=== PATIENT | male | born 1965 | race Caucasian/White ===

== ENCOUNTER 2019-08-04 19:15 | Emergency (ER) | payer BC, OTHER ==
[~2019-08-04] VITALS: Ht 177.8 cm; Wt 225.0 kg
[2019-08-04] MEDS ORDERED: ketorolac tromethamine 15mg/ml inj. IV ONE (20:10)
[2019-08-04] MEDS ORDERED: morphine 4 MG/ML inj SYRINge IV ONE (20:10)
[2019-08-04] MEDS ORDERED: normal saline 1000ml 1,000 ML IV ONE (20:10)
[2019-08-04] MEDS ORDERED: ondansetron/PF 4mg/2ml inj IV ONE (20:10)
[2019-08-04 20:19] LABS: CLARITY,URINE CLEAR (Clear); COLOR,URINE YELLOW (Yellow); GLUCOSE, URINE 500 mg/dl (Neg); KETONES,URINE TRACE mg/dl (Neg); LEUKOCYTE ESTERASE ,URINE NEGATIVE (Neg); NITRITES, URINE NEGATIVE (Neg); OCCULT BLOOD,URINE NEGATIVE (Neg); PH,URINE 5.5 (4.8-8.0); PROTEIN,URINE NEGATIVE (Neg); UROBILINOGEN,URINE 0.2 E.U/dL (0.2-1.0)
[2019-08-04 20:23] LABS: UA COLLECTION TYPE CLN CATCH MIDSTREAM
[2019-08-04 20:48] LABS: BASOPHILS # (AUTO) 0.1 X10'3 (0-0.2); BASOPHILS % (AUTO) 0.5 % (0-1); EOSINOPHILS # (AUTO) 0.2 X10'3 (0-0.9); EOSINOPHILS % (AUTO) 1.4 % (0-6); HEMATOCRIT 46.2 % (42.0-52.0); HEMOGLOBIN 16.1 g/dl (14.0-17.9); LYMPHOCYTES # (AUTO) 2.1 X10'3 (1.1-4.8); LYMPHOCYTES % (AUTO) 19.3 % (21-51); MEAN CORPUSCULAR HEMOGLOBIN 31.8 PG (27.0-31.0); MEAN CORPUSCULAR HGB CONC 34.9 g/dL (33.0-36.5); MEAN CORPUSCULAR VOLUME 91.2 FL (78-98); MONOCYTES # (AUTO) 0.7 X10'3 (0-0.9); MONOCYTES % (AUTO) 6.6 % (2-12); NEUTROPHILS # (AUTO) 7.9 X10'3 (1.8-7.7); NEUTROPHILS % (AUTO) 72.2 % (42-75); PLATELET COUNT 223 X10'3 (140-440); RED BLOOD COUNT 5.07 X10'6 (4.70-6.10); RED CELL DISTRIBUTION WIDTH 13.8 % (11.5-14.5); WHITE BLOOD COUNT 10.9 X10'3 (4.5-11.0)
[2019-08-04 21:08] LABS: ALBUMIN 4.1 G/DL (3.4-5.0); ALKALINE PHOSPHATASE 107 IU/L (46-116); CALCIUM 8.4 MG/DL (8.5-10.1); CREATININE 1.51 MG/DL (0.60-1.10); TOTAL CARBON DIOXIDE 26.4 MMOL/L (24-32); eGFR 48 ML/MIN
[2019-08-04] MEDS ORDERED: ONDA4TAB6 PO (21:28)
[2019-08-04] MEDS ORDERED: HYDR-4353 PO (21:28)
[2019-08-04] MEDS ORDERED: FLO0.4C PO (21:28)
[2019-08-04 21:36] LABS: ALANINE AMINOTRANSFERASE 84 U/L (12-78); ALBUMIN/GLOBULIN RATIO 1.1 (1.1-1.5); ANION GAP 12 (8-16); BILIRUBIN,TOTAL 0.7 MG/DL (0.1-1.0); BLOOD UREA NITROGEN 18 MG/DL (7-18); BUN/CREATININE RATIO 11.9 (5.4-32.0); CHLORIDE 100 MMOL/L (99-107); SODIUM 138 MMOL/L (135-145); TOTAL PROTEIN 7.9 G/DL (6.4-8.2)
[2019-08-04 21:37] LABS: POTASSIUM 4.4 MMOL/L (3.5-5.1)
[2019-08-04 21:59] LABS: LIPASE 3261 U/L (73-393)
[2019-08-04 22:02] LABS: ASPARTATE AMINO TRANSFERASE 63 U/L (10-37)
[2019-08-04 22:03] LABS: GLUCOSE 232 MG/DL (70-104)
[2019-08-04 22:27] VITALS: BP 151/97
== END 2019-08-04 22:29 | disposition home or self-care (01) ==
LOC: EEVIPCON 19:16 → ER 19:16
DX: N20.0 Calculus of kidney (principal); K29.80 Duodenitis without bleeding; K85.90 Acute pancreatitis without necrosis or infection, unspecified; Z79.899 Other long term (current) drug therapy
CPT/HCPCS: 36415; 74176; 80053; 81003; 83690; 85025; 96374; 96375; 99284; J1885; J2270; J2405; J7030

== ENCOUNTER 2019-08-09 16:32 | Emergency (ER) | payer OTHER ==
[~2019-08-09] VITALS: Ht 177.8 cm; Wt 98.4 kg
[~2019-08-09 16:32] MED LIST: FLO0.4C PO; HYDR-4353 PO; ONDA4TAB6 PO
[2019-08-09] MEDS ORDERED: normal saline 1000ML IV soln IV ONE (17:10)
[2019-08-09 17:38] LABS: BASOPHILS % (AUTO) 0.6 % (0-1); EOSINOPHILS # (AUTO) 0.2 X10'3 (0-0.9); EOSINOPHILS % (AUTO) 2.5 % (0-6); HEMATOCRIT 42.9 % (42.0-52.0); HEMOGLOBIN 14.3 g/dl (14.0-17.9); LYMPHOCYTES # (AUTO) 1.5 X10'3 (1.1-4.8); LYMPHOCYTES % (AUTO) 22.4 % (21-51); MEAN CORPUSCULAR HEMOGLOBIN 30.4 PG (27.0-31.0); MEAN CORPUSCULAR HGB CONC 33.3 g/dL (33.0-36.5); MEAN CORPUSCULAR VOLUME 91.3 FL (78-98); MEAN PLATELET VOLUME 8.5 FL (7.4-10.4); MONOCYTES # (AUTO) 0.5 X10'3 (0-0.9); MONOCYTES % (AUTO) 7.2 % (2-12); NEUTROPHILS # (AUTO) 4.5 X10'3 (1.8-7.7); NEUTROPHILS % (AUTO) 67.3 % (42-75); PLATELET COUNT 234 X10'3 (140-440); RED CELL DISTRIBUTION WIDTH 13.8 % (11.5-14.5); WHITE BLOOD COUNT 6.7 X10'3 (4.5-11.0)
[2019-08-09 17:53] LABS: PARTIAL THROMBOPLASTIN TIME 27 SECONDS (22-32)
[2019-08-09 17:55] LABS: ALANINE AMINOTRANSFERASE 68 U/L (12-78); ALBUMIN 3.9 G/DL (3.4-5.0); ALBUMIN/GLOBULIN RATIO 0.9 (1.1-1.5); ALKALINE PHOSPHATASE 135 IU/L (46-116); ANION GAP 11 (8-16); ASPARTATE AMINO TRANSFERASE 57 U/L (10-37); BILIRUBIN,TOTAL 0.9 MG/DL (0.1-1.0); BLOOD UREA NITROGEN 14 MG/DL (7-18); BUN/CREATININE RATIO 10.7 (5.4-32.0); CALCIUM 9.3 MG/DL (8.5-10.1); CHLORIDE 105 MMOL/L (99-107); CREATININE 1.31 MG/DL (0.60-1.10); GLUCOSE 150 MG/DL (70-104); LIPASE 144 U/L (73-393); MAGNESIUM 2.1 MG/DL (1.5-2.4); POTASSIUM 4.4 MMOL/L (3.5-5.1); SODIUM 142 MMOL/L (135-145); TOTAL CARBON DIOXIDE 25.6 MMOL/L (24-32); TOTAL PROTEIN 8.3 G/DL (6.4-8.2); eGFR 57 ML/MIN
--- NOTE | 2019-08-09 18:30 | NUR ---
U/S CALLED BACK AT 18:[address] IN
--- NOTE | 2019-08-09 18:54 | NUR ---
PT AMBULATED TO BATHROOM WITH NO DIFFICULTY, URINE SAMPLE OBTAINED. PT UPDATE ON PLAN OF CARE, AGREEABLE TO PLAN
[2019-08-09 19:41] VITALS: BP 124/59
[2019-08-09 19:58] LABS: CLARITY,URINE CLEAR (Clear); COLOR,URINE YELLOW (Yellow); GLUCOSE, URINE NEGATIVE (Neg); KETONES,URINE NEGATIVE (Neg); LEUKOCYTE ESTERASE ,URINE NEGATIVE (Neg); NITRITES, URINE NEGATIVE (Neg); OCCULT BLOOD,URINE NEGATIVE (Neg); PROTEIN,URINE NEGATIVE (Neg); UA COLLECTION TYPE CLN CATCH MIDSTREAM
== END 2019-08-09 19:39 | disposition home or self-care (01) ==
LOC: ER 16:34 → EEVIPCON 16:34 → ER 19:39
DX: R10.12 Left upper quadrant pain (principal); R10.32 Left lower quadrant pain; Z87.442 Personal history of urinary calculi; Z79.899 Other long term (current) drug therapy
CPT/HCPCS: 36415; 76700; 80053; 81003; 83605; 83690; 83735; 84145; 85025; 85610; 85730; 87040; 99284; J7030

== ENCOUNTER 2019-08-13 15:02 | Emergency (ER) | payer BC, OTHER ==
[~2019-08-13] VITALS: Ht 177.8 cm; Wt 97.0 kg
[~2019-08-13 15:02] MED LIST changes: -HYDR-4353 PO
[2019-08-13 15:05] VITALS: BP 186/106
[2019-08-13] MEDS ORDERED: FLO0.4C PO (16:05)
== END 2019-08-13 16:24 | disposition home or self-care (01) ==
LOC: EEVIPCON 15:03 → ER 15:03
DX: R14.0 Abdominal distension (gaseous) (principal); Z79.899 Other long term (current) drug therapy
CPT/HCPCS: 99281

== ENCOUNTER 2019-08-19 11:08 | Emergency (ER) | payer BC ==
[~2019-08-19] VITALS: Ht 180.3 cm; Wt 98.2 kg
[2019-08-19] MEDS ORDERED: metFORMIN 500mg tablet PO ONE (12:00)
[2019-08-19 12:31] VITALS: BP 125/88
== END 2019-08-19 12:31 | disposition home or self-care (01) ==
LOC: EEVIPCON 11:09 → ER 11:09
DX: E11.65 Type 2 diabetes mellitus with hyperglycemia (principal); K21.9 Gastro-esophageal reflux disease without esophagitis; Z79.899 Other long term (current) drug therapy
CPT/HCPCS: 82948; 99283

== ENCOUNTER 2019-08-21 09:27 | Outpatient (CLI) | payer BC ==
[2019-08-21 10:43] LABS: CLARITY,URINE CLEAR (Clear); COLOR,URINE YELLOW (Yellow); GLUCOSE, URINE NEGATIVE (Neg); KETONES,URINE TRACE mg/dl (Neg); LEUKOCYTE ESTERASE ,URINE NEGATIVE (Neg); NITRITES, URINE NEGATIVE (Neg); OCCULT BLOOD,URINE NEGATIVE (Neg); PH,URINE 5.5 (4.8-8.0); PROTEIN,URINE NEGATIVE (Neg); UROBILINOGEN,URINE 0.2 E.U/dL (0.2-1.0)
[2019-08-21 10:45] LABS: BASOPHILS % (AUTO) 0.5 % (0-1); EOSINOPHILS # (AUTO) 0.1 X10'3 (0-0.9); EOSINOPHILS % (AUTO) 2.1 % (0-6); HEMATOCRIT 43.3 % (42.0-52.0); HEMOGLOBIN 14.4 g/dl (14.0-17.9); LYMPHOCYTES # (AUTO) 1.5 X10'3 (1.1-4.8); LYMPHOCYTES % (AUTO) 25.1 % (21-51); MEAN CORPUSCULAR HEMOGLOBIN 29.7 PG (27.0-31.0); MEAN CORPUSCULAR HGB CONC 33.2 g/dL (33.0-36.5); MEAN CORPUSCULAR VOLUME 89.4 FL (78-98); MEAN PLATELET VOLUME 8.8 FL (7.4-10.4); MONOCYTES # (AUTO) 0.3 X10'3 (0-0.9); MONOCYTES % (AUTO) 5.2 % (2-12); NEUTROPHILS % (AUTO) 67.1 % (42-75); PLATELET COUNT 251 X10'3 (140-440); RED BLOOD COUNT 4.84 X10'6 (4.70-6.10); RED CELL DISTRIBUTION WIDTH 13.7 % (11.5-14.5)
[2019-08-21 10:47] LABS: UA COLLECTION TYPE VOIDED
[2019-08-21 11:06] LABS: ALANINE AMINOTRANSFERASE 53 U/L (12-78); ALBUMIN/GLOBULIN RATIO 1.1 (1.1-1.5); ALKALINE PHOSPHATASE 95 IU/L (46-116); ANION GAP 11 (8-16); ASPARTATE AMINO TRANSFERASE 31 U/L (10-37); BILIRUBIN,TOTAL 0.8 MG/DL (0.1-1.0); BLOOD UREA NITROGEN 19 MG/DL (7-18); BUN/CREATININE RATIO 14.2 (5.4-32.0); CALCIUM 9.3 MG/DL (8.5-10.1); CHLORIDE 106 MMOL/L (99-107); CHOL/HDL RATIO 8.7 (0.00-4.99); CHOLESTEROL 277 MG/DL (0-200); CREATININE 1.34 MG/DL (0.60-1.10); GLUCOSE 138 MG/DL (70-104); HDL CHOLESTEROL 32 MG/DL (35-60); LDL CHOLESTEROL 167 MG/DL (50-100); POTASSIUM 4.2 MMOL/L (3.5-5.1); SODIUM 142 MMOL/L (135-145); TOTAL CARBON DIOXIDE 24.9 MMOL/L (24-32); TOTAL PROTEIN 7.6 G/DL (6.4-8.2); TRIGLYCERIDES 334 MG/DL (20-135); eGFR 55 ML/MIN
== END 2019-08-21 23:59 | disposition home or self-care (01) ==
LOC: LAB 09:27
PROVIDERS: ATTEND Family Medicine
DX: I10 Essential (primary) hypertension (principal); E78.5 Hyperlipidemia, unspecified; J44.9 Chronic obstructive pulmonary disease, unspecified; K21.9 Gastro-esophageal reflux disease without esophagitis; K85.90 Acute pancreatitis without necrosis or infection, unspecified; N20.0 Calculus of kidney; E11.65 Type 2 diabetes mellitus with hyperglycemia; E11.49 Type 2 diabetes mellitus with other diabetic neurological complication; F32.9 Major depressive disorder, single episode, unspecified; J45.909 Unspecified asthma, uncomplicated; Z76.89 Persons encountering health services in other specified circumstances
CPT/HCPCS: 36415; 80053; 80061; 81003; 84439; 84443; 84550; 85025

== ENCOUNTER 2019-08-29 09:35 | Outpatient (CLI) | payer BC ==
[2019-08-29 10:41] LABS: ALBUMIN 4.6 G/DL (3.4-5.0); ANION GAP 12 (8-16); BLOOD UREA NITROGEN 25 MG/DL (7-18); BUN/CREATININE RATIO 15.4 (5.4-32.0); CALCIUM 9.8 MG/DL (8.5-10.1); CHLORIDE 104 MMOL/L (99-107); CREATININE 1.62 MG/DL (0.60-1.10); GLUCOSE 133 MG/DL (70-104); POTASSIUM 4.5 MMOL/L (3.5-5.1); SODIUM 139 MMOL/L (135-145); TOTAL CARBON DIOXIDE 23.2 MMOL/L (24-32); eGFR 44 ML/MIN
== END 2019-08-29 23:59 | disposition home or self-care (01) ==
LOC: LAB 09:35
PROVIDERS: ATTEND Family Medicine
DX: E11.65 Type 2 diabetes mellitus with hyperglycemia (principal); J30.2 Other seasonal allergic rhinitis; F32.9 Major depressive disorder, single episode, unspecified; Z12.11 Encounter for screening for malignant neoplasm of colon; Z23 Encounter for immunization
CPT/HCPCS: 36415; 80048

== ENCOUNTER 2019-09-12 08:51 | Outpatient (CLI) | payer BC ==
[2019-09-12 09:33] LABS: ALBUMIN 4.3 G/DL (3.4-5.0); ANION GAP 9 (8-16); BLOOD UREA NITROGEN 19 MG/DL (7-18); BUN/CREATININE RATIO 13.3 (5.4-32.0); CALCIUM 9.2 MG/DL (8.5-10.1); CHLORIDE 105 MMOL/L (99-107); CREATININE 1.43 MG/DL (0.60-1.10); GLUCOSE 125 MG/DL (70-104); POTASSIUM 4.1 MMOL/L (3.5-5.1); SODIUM 140 MMOL/L (135-145); TOTAL CARBON DIOXIDE 25.9 MMOL/L (24-32); eGFR 51 ML/MIN
== END 2019-09-12 23:59 | disposition home or self-care (01) ==
LOC: LAB 08:51
PROVIDERS: ATTEND Family Medicine
DX: E11.65 Type 2 diabetes mellitus with hyperglycemia (principal); I10 Essential (primary) hypertension; R53.83 Other fatigue; F32.9 Major depressive disorder, single episode, unspecified
CPT/HCPCS: 36415; 80048

== ENCOUNTER 2019-11-12 11:09 | Outpatient (CLI) | payer BC ==
[~2019-11-12 11:09] MED LIST changes: -FLO0.4C PO
== END 2019-11-12 23:59 | disposition home or self-care (01) ==
LOC: LAB 11:09
PROVIDERS: ATTEND Family Medicine
DX: E11.65 Type 2 diabetes mellitus with hyperglycemia (principal)
CPT/HCPCS: 36415; 82043; 82570; 83036

== ENCOUNTER 2019-12-28 14:51 | Emergency (ER) | payer BC ==
[~2019-12-28] VITALS: Ht 177.8 cm; Wt 93.2 kg
--- NOTE | 2019-12-28 15:26 | NUR ---
CONSUELO De La Rosa with pt.
[2019-12-28 16:49] VITALS: BP 140/97
== END 2019-12-28 16:00 | disposition home or self-care (01) ==
LOC: ER 14:51
DX: B34.9 Viral infection, unspecified (principal); R05 Cough; R51.9 Headache, unspecified; R19.7 Diarrhea, unspecified; Z20.828 Contact with and (suspected) exposure to other viral communicable diseases; K21.9 Gastro-esophageal reflux disease without esophagitis; E11.9 Type 2 diabetes mellitus without complications; Z87.440 Personal history of urinary (tract) infections; Z79.899 Other long term (current) drug therapy
CPT/HCPCS: 36415; 99281

== ENCOUNTER 2020-01-22 11:41 | Outpatient (CLI) | payer BC ==
[2020-01-22 16:05] LABS: HIV ANTIBODY 1&2 RAPID NON-REACTIVE (Neg)
[2020-01-23 12:28] LABS: HBSAG SCREEN Negative (Negative); HEP A AB, IGM Negative (Negative); HEPATITIS C ANTIBODY <0.1 s/co ratio (0.0-0.9)
== END 2020-01-22 23:59 | disposition home or self-care (01) ==
LOC: LAB 11:41
PROVIDERS: ATTEND Family Medicine
DX: Z20.2 Contact with and (suspected) exposure to infections with a predominantly sexual mode of transmission (principal)
CPT/HCPCS: 36415; 80074; 86592; 86695; 86696; 86703; 87491

== ENCOUNTER 2020-02-20 09:23 | Outpatient (CLI) | payer BC ==
[2020-02-20 10:09] LABS: HEMOGLOBIN A1C 6.7 % (4.5-6.2)
[2020-02-20 10:13] LABS: ALANINE AMINOTRANSFERASE 53 U/L (12-78); ALBUMIN 4.5 G/DL (3.4-5.0); ALBUMIN/GLOBULIN RATIO 1.3 (1.1-1.5); ALKALINE PHOSPHATASE 80 IU/L (46-116); ANION GAP 8 (8-16); ASPARTATE AMINO TRANSFERASE 25 U/L (10-37); BILIRUBIN,TOTAL 0.7 MG/DL (0.1-1.0); BLOOD UREA NITROGEN 22 MG/DL (7-18); BUN/CREATININE RATIO 16.5 (5.4-32.0); CALCIUM 9.7 MG/DL (8.5-10.1); CHLORIDE 107 MMOL/L (99-107); CREATININE 1.33 MG/DL (0.60-1.10); GLUCOSE 166 MG/DL (70-104); POTASSIUM 4.7 MMOL/L (3.5-5.1); SODIUM 144 MMOL/L (135-145); TOTAL CARBON DIOXIDE 29.1 MMOL/L (24-32); TOTAL PROTEIN 8.1 G/DL (6.4-8.2); eGFR 56 ML/MIN
== END 2020-02-20 23:59 | disposition home or self-care (01) ==
LOC: LAB 09:23
PROVIDERS: ATTEND Family Medicine
DX: E11.69 Type 2 diabetes mellitus with other specified complication (principal)
CPT/HCPCS: 36415; 80053; 83036

== ENCOUNTER 2020-02-23 15:41 | Emergency (ER) | payer BC ==
[~2020-02-23] VITALS: Ht 179.1 cm; Wt 96.4 kg
[2020-02-23 15:54] VITALS: BP 135/95
== END 2020-02-23 16:43 | disposition home or self-care (01) ==
LOC: ER 15:42
DX: M25.512 Pain in left shoulder (principal); K21.9 Gastro-esophageal reflux disease without esophagitis; E11.9 Type 2 diabetes mellitus without complications; Z87.442 Personal history of urinary calculi; Z79.899 Other long term (current) drug therapy
CPT/HCPCS: 73030; 99283

== ENCOUNTER 2020-03-12 12:58 | Outpatient (CLI) | payer BC | END 2020-03-12 23:59 | disposition home or self-care (01) | LOC: RAD 12:58 | PROVIDERS: ATTEND Family Medicine | DX: M25.562 Pain in left knee (principal); M25.552 Pain in left hip; M25.572 Pain in left ankle and joints of left foot | CPT/HCPCS: 73502; 73564; 73610 ==

== ENCOUNTER 2020-05-12 12:26 | Emergency (ER) | payer OTHER ==
[~2020-05-12] VITALS: Ht 177.8 cm; Wt 100.0 kg
[2020-05-12 12:35] VITALS: BP 135/91
== END 2020-05-12 13:22 | disposition home or self-care (01) ==
LOC: ER 12:26
DX: S60.511A Abrasion of right hand, initial encounter (principal); Z77.21 Contact with and (suspected) exposure to potentially hazardous body fluids; K21.9 Gastro-esophageal reflux disease without esophagitis; E11.9 Type 2 diabetes mellitus without complications; Z87.442 Personal history of urinary calculi; Z79.899 Other long term (current) drug therapy; X58.XXXA Exposure to other specified factors, initial encounter; Y93.9 Activity, unspecified; Y92.89 Other specified places as the place of occurrence of the external cause; Y99.8 Other external cause status
CPT/HCPCS: 99282

== ENCOUNTER 2020-05-21 12:02 | Outpatient (CLI) | payer BC ==
[2020-05-21 12:58] LABS: ALBUMIN 4.5 G/DL (3.4-5.0); ANION GAP 11 (8-16); BLOOD UREA NITROGEN 18 MG/DL (7-18); CALCIUM 9.9 MG/DL (8.5-10.1); CHLORIDE 104 MMOL/L (99-107); CREATININE 1.29 MG/DL (0.60-1.10); GLUCOSE 146 MG/DL (70-104); HEMOGLOBIN A1C 7.6 % (4.5-6.2); POTASSIUM 4.9 MMOL/L (3.5-5.1); SODIUM 141 MMOL/L (135-145); eGFR 58 ML/MIN
== END 2020-05-21 23:59 | disposition home or self-care (01) ==
LOC: LAB 12:02
PROVIDERS: ATTEND Family Medicine
DX: E11.69 Type 2 diabetes mellitus with other specified complication (principal); R79.89 Other specified abnormal findings of blood chemistry
CPT/HCPCS: 36415; 80048; 83036

== ENCOUNTER 2020-05-25 14:16 | Emergency (ER) | payer BC ==
[~2020-05-25] VITALS: Ht 177.8 cm; Wt 96.4 kg
[2020-05-25] MEDS ORDERED: ketorolac trometh inj. 60 MG/2 ML VIAL IM ONE (15:05)
[2020-05-25] MEDS ORDERED: GABA300C PO (15:07)
[2020-05-25 15:17] VITALS: BP 126/92
== END 2020-05-25 15:17 | disposition home or self-care (01) ==
LOC: ER 14:16
DX: G89.29 Other chronic pain (principal); M25.512 Pain in left shoulder; K21.9 Gastro-esophageal reflux disease without esophagitis; E11.42 Type 2 diabetes mellitus with diabetic polyneuropathy; Z87.442 Personal history of urinary calculi; Z79.899 Other long term (current) drug therapy
CPT/HCPCS: 96372; 99283; J1885

== ENCOUNTER 2020-08-09 19:57 | Emergency (ER) | payer BC ==
[~2020-08-09] VITALS: Ht 177.8 cm; Wt 100.0 kg
[~2020-08-09 19:57] MED LIST changes: +GABA300C PO
--- NOTE | 2020-08-09 20:27 | NUR ---
PATIENT IS HERE FOR 4 ISSUES: 1. PATIENT REQUESTING PRESCRIPTION REFILL FOR GABAPENTIN 300 MG TID. 2. MEDICATION FOR PAIN. PATIENT IS TAKING NAPROXEN EVERY 12 HOURS AND 2 TYLENOL UNKNOWN DOSE WITH NAPROXEN WITHOUT ADEQUATE PAIN RELIEF OF LEFT SHOULDER IMPINGEMENT DX BY DR FENTON. RATES PAIN NOW A 4/10. PAIN IS IN SHOULDER AND ARMPIT TO LEFT ELBOW LIKE A "STINGING LIGTHNING BOLT". QUENTIN ALSO HAS BURSITIS DX IN HIS LEFT SHOULDER. PAIN CAN ESCALATE TO 10/10. PATIENT IS TO START PHYSICAL THERAPY PER DR FENTON. PATIENT WOULD LIKE TO TRY TO HAVE BETTER PAIN CONTROL WITH OTHER MEDICATION FOR PAIN. SUGGSETED TAKING TYLENOL MORE FREQUENT THAN EVERY 12 HOURS ROUTINELY. 3. PATIENT REPORTS LEFT THIGH "VIBRATION" WHICH INCREASED WHEN TRAVELING IN [place] AND WAS IN BOTH LEGS: MONTHS AGO AND NOW VIBRATION IN LEFT THIGH HAS RETURNED "ODDLY" 4. NOT FEELING WELL: TIRED AND SLEEPY , "CLOSE TO" NAUSEA: UPSET STOMACH ALL WEEK: ABLE TO EAT AND DRINK "LIGHTLY" AND NOW EATING "NORMALLY" IN SMALLER PORTIONS
--- NOTE | 2020-08-09 20:39 | NUR ---
QUENTIN REPORTS HIS BLOOD SUGAR WAS 165 AT ABOUT 0700 TODAY PRIOR TO EATING
[2020-08-09] MEDS ORDERED: GABA-534 PO (21:34)
[2020-08-09] MEDS ORDERED: TRAM50TA2 PO (21:35)
[2020-08-09 21:53] VITALS: BP 144/94
== END 2020-08-09 21:55 | disposition home or self-care (01) ==
LOC: ER 19:58 → EEVIPCON 19:58 → ER 21:55
DX: E11.40 Type 2 diabetes mellitus with diabetic neuropathy, unspecified (principal); M25.512 Pain in left shoulder; Z76.0 Encounter for issue of repeat prescription; K21.9 Gastro-esophageal reflux disease without esophagitis; Z87.442 Personal history of urinary calculi; Z79.899 Other long term (current) drug therapy
CPT/HCPCS: 99281

== ENCOUNTER 2020-08-11 11:53 | Outpatient (CLI) | payer BC ==
[~2020-08-11 11:53] MED LIST changes: +GABA-534 PO; +TRAM50TA2 PO
[2020-08-11 13:41] LABS: BASOPHILS % (AUTO) 0.5 % (0-1); EOSINOPHILS # (AUTO) 0.2 X10'3 (0-0.9); HEMATOCRIT 41.9 % (42.0-52.0); HEMOGLOBIN 14.2 g/dl (14.0-17.9); LYMPHOCYTES # (AUTO) 1.7 X10'3 (1.1-4.8); MEAN CORPUSCULAR HEMOGLOBIN 31.2 PG (27.0-31.0); MEAN CORPUSCULAR HGB CONC 33.8 g/dL (33.0-36.5); MEAN CORPUSCULAR VOLUME 92.3 FL (78-98); MONOCYTES # (AUTO) 0.4 X10'3 (0-0.9); MONOCYTES % (AUTO) 5.8 % (2-12); NEUTROPHILS % (AUTO) 67.7 % (42-75); PLATELET COUNT 215 X10'3 (140-440); RED BLOOD COUNT 4.54 X10'6 (4.70-6.10); RED CELL DISTRIBUTION WIDTH 14.1 % (11.5-14.5); WHITE BLOOD COUNT 7.3 X10'3 (4.5-11.0)
[2020-08-12 11:05] LABS: OCCULT BLOOD STOOL NEGATIVE (Neg)
== END 2020-08-11 23:59 | disposition home or self-care (01) ==
LOC: RAD 11:53
DX: R10.9 Unspecified abdominal pain (principal); R53.83 Other fatigue; I10 Essential (primary) hypertension
CPT/HCPCS: 36415; 82272; 85025

== ENCOUNTER 2020-08-13 11:40 | Outpatient (CLI) | payer BC | END 2020-08-13 23:59 | disposition home or self-care (01) | LOC: 64 CT 11:40 | PROVIDERS: ATTEND Family Medicine | DX: N20.2 Calculus of kidney with calculus of ureter (principal); K42.9 Umbilical hernia without obstruction or gangrene; N28.1 Cyst of kidney, acquired; M47.819 Spondylosis without myelopathy or radiculopathy, site unspecified; J98.11 Atelectasis; I31.3 Pericardial effusion (noninflammatory) | CPT/HCPCS: 74150 ==

== ENCOUNTER 2020-08-18 10:03 | Outpatient (CLI) | payer BC | END 2020-08-18 23:59 | disposition home or self-care (01) | LOC: LAB 10:03 | PROVIDERS: ATTEND Family Medicine | DX: E11.65 Type 2 diabetes mellitus with hyperglycemia (principal) | CPT/HCPCS: 36415; 83036 ==

== ENCOUNTER 2020-09-12 12:25 | Emergency (ER) | payer OTHER ==
[~2020-09-12] VITALS: Ht 179.1 cm; Wt 102.3 kg
[~2020-09-12 12:25] MED LIST changes: -TRAM50TA2 PO
[2020-09-12 13:07] VITALS: BP 143/93
--- NOTE | 2020-09-12 13:17 | NUR ---
Seen, assessed and discharged by provider bj CORDERO.
== END 2020-09-12 13:19 | disposition home or self-care (01) ==
LOC: ER 12:25
DX: M25.512 Pain in left shoulder (principal); K21.9 Gastro-esophageal reflux disease without esophagitis; E11.9 Type 2 diabetes mellitus without complications; Z87.442 Personal history of urinary calculi; Z79.899 Other long term (current) drug therapy
CPT/HCPCS: 99281

== ENCOUNTER 2020-09-19 00:57 | Inpatient (IN) | payer BC, OTHER ==
[~2020-09-19] VITALS: Ht 177.8 cm; Wt 100.5 kg
--- NOTE | 2020-09-19 01:45 | NUR ---
Pt c/o 6.5 pain. PT notified.
[2020-09-19] MEDS ORDERED: ketorolac tromethamine 15mg/ml inj. IV ONE (02:00)
[2020-09-19] MEDS ORDERED: tamsulosin 0.4mg capsule PO ONE (02:00)
[2020-09-19] MEDS ORDERED: tamsulosin 0.4mg capsule PO SCH (02:00)
[2020-09-19] MEDS ORDERED: pantoprazole 40 MG vial IV ONE (02:00)
[2020-09-19] MEDS ORDERED: ondansetron/PF 4mg/2ml inj IV ONE (02:00)
[2020-09-19] MEDS ORDERED: morphine 4 MG/ML inj SYRINge IV ONE ×2 (02:00→07:20)
[2020-09-19 02:05] LABS: CLARITY,URINE CLEAR (Clear); COLOR,URINE YELLOW (Yellow); GLUCOSE, URINE 500 mg/dl (Neg); KETONES,URINE NEGATIVE (Neg); LEUKOCYTE ESTERASE ,URINE NEGATIVE (Neg); NITRITES, URINE NEGATIVE (Neg); OCCULT BLOOD,URINE NEGATIVE (Neg); PROTEIN,URINE NEGATIVE (Neg); UROBILINOGEN,URINE 0.2 E.U/dL (0.2-1.0)
[2020-09-19 02:11] LABS: UA COLLECTION TYPE CLN CATCH MIDSTREAM
[2020-09-19] MEDS ORDERED: simethicone 125mg capsule PO ONE (03:55)
[2020-09-19] MEDS ORDERED: magnesium citrate 296ml oral solution PO ONE (05:30)
[2020-09-19 05:51] LABS: BASOPHILS # (AUTO) 0.1 X10'3 (0-0.2); BASOPHILS % (AUTO) 0.5 % (0-1); EOSINOPHILS # (AUTO) 0.2 X10'3 (0-0.9); EOSINOPHILS % (AUTO) 1.3 % (0-6); HEMATOCRIT 43.8 % (42.0-52.0); HEMOGLOBIN 14.5 g/dl (14.0-17.9); LYMPHOCYTES # (AUTO) 2.4 X10'3 (1.1-4.8); LYMPHOCYTES % (AUTO) 20.1 % (21-51); MEAN CORPUSCULAR HGB CONC 33.2 g/dL (33.0-36.5); MEAN CORPUSCULAR VOLUME 93.4 FL (78-98); MEAN PLATELET VOLUME 9.1 FL (7.4-10.4); MONOCYTES # (AUTO) 0.9 X10'3 (0-0.9); MONOCYTES % (AUTO) 7.2 % (2-12); NEUTROPHILS # (AUTO) 8.6 X10'3 (1.8-7.7); NEUTROPHILS % (AUTO) 70.9 % (42-75); PLATELET COUNT 213 X10'3 (140-440); RED BLOOD COUNT 4.69 X10'6 (4.70-6.10); WHITE BLOOD COUNT 12.1 X10'3 (4.5-11.0)
[2020-09-19 06:06] LABS: ALANINE AMINOTRANSFERASE 44 U/L (12-78); ALBUMIN 4.4 G/DL (3.4-5.0); ALBUMIN/GLOBULIN RATIO 1.4 (1.1-1.5); ALKALINE PHOSPHATASE 80 IU/L (46-116); ANION GAP 8 (8-16); ASPARTATE AMINO TRANSFERASE 19 U/L (10-37); BILIRUBIN,TOTAL 0.7 MG/DL (0.1-1.0); BLOOD UREA NITROGEN 30 MG/DL (7-18); BUN/CREATININE RATIO 19.4 (5.4-32.0); CALCIUM 9.5 MG/DL (8.5-10.1); CHLORIDE 103 MMOL/L (99-107); CREATININE 1.55 MG/DL (0.60-1.10); GLUCOSE 195 MG/DL (70-104); LIPASE 1090 U/L (73-393); POTASSIUM 5.1 MMOL/L (3.5-5.1); SODIUM 138 MMOL/L (135-145); TOTAL CARBON DIOXIDE 27.4 MMOL/L (24-32); TOTAL PROTEIN 7.5 G/DL (6.4-8.2); eGFR 46 ML/MIN
[2020-09-19] MEDS ORDERED: iohexol 300mg/ml 100ml inj. ONE (06:59)
[2020-09-19] MEDS: MESSAGE TO NURSING PO SCH ×2 (07:15→10:00)
[2020-09-19] MEDS ORDERED: magnesium hydroxide 30ml (MOM) UD suspension PO PRN (07:25)
[2020-09-19] MEDS ORDERED: acetaminophen 325mg tablet PO PRN (07:25)
[2020-09-19] MEDS ORDERED: morphine 2 MG/ML inj. syringe IV PRN (07:25)
[2020-09-19] MEDS ORDERED: ondansetron/PF 4mg/2ml inj IV PRN (07:25)
[2020-09-19] MEDS ORDERED: mag hydrox/Alum hydrox/simeth 30ml oral suspension PO PRN (07:25)
--- NOTE | 2020-09-19 09:05 | NUR ---
Pt tx via chrisrlauro from ED. Awake alert & oriented x4, denies pain at this time. Oriented to room & POC. SO at bedside, all questions addressed with verbal understanding. Bed low, call light in reach.
[2020-09-19] MEDS: pantoprazole 40 MG vial IV SCH ×2 (09:44→20:03)
[2020-09-19 09:45] VITALS: BP 115/75
[2020-09-19] MEDS: enoxaparin 40mg/0.4ml syringe SUBCUT SCH (09:46)
[2020-09-19] MEDS: normal saline 1000ml 1,000 ML IV SCH ×3 (09:47→22:39)
[2020-09-19] MEDS ORDERED: NAPR-996 PO (10:17)
[2020-09-19] MEDS ORDERED: ASPI-1475 PO (10:17)
[2020-09-19] MEDS ORDERED: VALS80TA32 PO (10:17)
[2020-09-19] MEDS ORDERED: ATOR-2 PO (10:17)
[2020-09-19] MEDS ORDERED: GABA-534 PO (10:17)
[2020-09-19] MEDS ORDERED: METF-950 PO (10:17)
[2020-09-19] MEDS ORDERED: OMEP-50 PO (10:17)
--- NOTE | 2020-09-19 10:40 | NUR ---
Nutrition consult re: NPO for pancreatitis. Pt just admit today. Noted h/o T2DM, A1c pending at this time. Recommend advancement to low fat CHO controlled diet as medically indicated as pancreatitis improves. Will continue to follow and monitor need for DM education pending A1c results. Addendum: 09/19/20 at [address] Amended: Links added.
[2020-09-19 12:57] LABS: CHOL/HDL RATIO 4.4 (0.00-4.99); CHOLESTEROL 185 MG/DL (0-200); HDL CHOLESTEROL 42 MG/DL (35-60); LDL CHOLESTEROL 103 MG/DL (50-100); TRIGLYCERIDES 212 MG/DL (20-135)
[2020-09-19] MEDS ORDERED: naproxen 500mg tablet PO PRN (13:45)
[2020-09-19] MEDS: morphine 2 MG/ML inj. syringe IV PRN ×2 (15:48→20:04)
[2020-09-19] MEDS: gabapentin 400mg capsule PO SCH (15:52)
[2020-09-19 18:00] VITALS: BP 121/88
--- NOTE | 2020-09-19 18:25 | NUR ---
Problems reprioritized. Patient report given, questions answered & plan of care reviewed with ALONZO Chan.
--- NOTE | 2020-09-19 18:30 | NUR ---
Patient in room TRAN 351. I have received report from CONRADO ROSADO and had the opportunity to ask questions and assume patient care.
[2020-09-20] VITALS: BP 122/79
[2020-09-20] MEDS: gabapentin 400mg capsule PO SCH ×4 (00:18→23:59)
[2020-09-20] MEDS: normal saline 1000ml 1,000 ML IV SCH ×4 (04:48→21:39)
[2020-09-20 05:54] LABS: BASOPHILS # (AUTO) 0.1 X10'3 (0-0.2); BASOPHILS % (AUTO) 0.6 % (0-1); EOSINOPHILS # (AUTO) 0.2 X10'3 (0-0.9); HEMATOCRIT 40.8 % (42.0-52.0); HEMOGLOBIN 13.6 g/dl (14.0-17.9); LYMPHOCYTES # (AUTO) 1.4 X10'3 (1.1-4.8); LYMPHOCYTES % (AUTO) 15.3 % (21-51); MEAN CORPUSCULAR HEMOGLOBIN 31.2 PG (27.0-31.0); MEAN CORPUSCULAR HGB CONC 33.4 g/dL (33.0-36.5); MEAN CORPUSCULAR VOLUME 93.4 FL (78-98); MEAN PLATELET VOLUME 8.5 FL (7.4-10.4); MONOCYTES # (AUTO) 0.7 X10'3 (0-0.9); MONOCYTES % (AUTO) 7.3 % (2-12); NEUTROPHILS # (AUTO) 6.9 X10'3 (1.8-7.7); NEUTROPHILS % (AUTO) 74.8 % (42-75); PLATELET COUNT 178 X10'3 (140-440); RED BLOOD COUNT 4.37 X10'6 (4.70-6.10); RED CELL DISTRIBUTION WIDTH 14.1 % (11.5-14.5); WHITE BLOOD COUNT 9.2 X10'3 (4.5-11.0)
[2020-09-20 06:23] LABS: ALANINE AMINOTRANSFERASE 37 U/L (12-78); ALBUMIN 3.6 G/DL (3.4-5.0); ALBUMIN/GLOBULIN RATIO 1.2 (1.1-1.5); ALKALINE PHOSPHATASE 79 IU/L (46-116); ANION GAP 7 (8-16); ASPARTATE AMINO TRANSFERASE 16 U/L (10-37); BILIRUBIN,TOTAL 1.2 MG/DL (0.1-1.0); BLOOD UREA NITROGEN 21 MG/DL (7-18); BUN/CREATININE RATIO 15.8 (5.4-32.0); CALCIUM 8.2 MG/DL (8.5-10.1); CHLORIDE 107 MMOL/L (99-107); CREATININE 1.33 MG/DL (0.60-1.10); GLUCOSE 176 MG/DL (70-104); POTASSIUM 4.9 MMOL/L (3.5-5.1); SODIUM 141 MMOL/L (135-145); TOTAL CARBON DIOXIDE 27.2 MMOL/L (24-32); TOTAL PROTEIN 6.6 G/DL (6.4-8.2); eGFR 55 ML/MIN
--- NOTE | 2020-09-20 06:25 | NUR ---
Patient in room TRAN 351. I have received report from Mikaela Al RN and had the opportunity to ask questions and assume patient care.
[2020-09-20 06:30] VITALS: BP 102/63
--- NOTE | 2020-09-20 06:30 | NUR ---
Problems reprioritized. Patient report given, questions answered & plan of care reviewed with PAT RN.
[2020-09-20] MEDS ORDERED: dextrose ORAL solution 15 GM/59 ML bottle PO PRN ×2 (07:30)
[2020-09-20] MEDS ORDERED: dextrose 50%-water 50ml dispensing syringe IV PRN ×2 (07:30)
[2020-09-20] MEDS ORDERED: insulin Lispro (HumaLOG) vial - multi-dose SQ SCH (07:30)
[2020-09-20] MEDS ORDERED: glucagon, human recombinant 1mg kit SUBCUT PRN (07:30)
[2020-09-20] MEDS: losartan 50mg tablet PO SCH (08:00)
[2020-09-20] MEDS: pantoprazole 40 MG vial IV SCH ×2 (08:20→19:45)
[2020-09-20] MEDS: aspirin 81mg tablet.DR PO SCH (08:21)
[2020-09-20] MEDS: atorvastatin 20mg tablet PO SCH (08:21)
[2020-09-20] MEDS: enoxaparin 40mg/0.4ml syringe SUBCUT SCH (08:22)
[2020-09-20] MEDS: MESSAGE TO NURSING PO SCH (08:22)
[2020-09-20] MEDS: morphine 2 MG/ML inj. syringe IV PRN ×3 (08:28→17:39)
[2020-09-20 10:09] LABS: LIPASE 580 U/L (73-393)
[2020-09-20 11:00] VITALS: BP 111/65
--- NOTE | 2020-09-20 14:00 | NUR ---
Diabetes Consult: Pt A1C 7.9, states he has had some previous education about managing diabetes, reports that he has good dietary habits and walks regularly. Provided Pt and his w/ written and verbal diabetes education w/ RD contact info, pt was receptive. Will continue to monitor. Addendum: 09/20/20 at [address] Amended: Links added.
[2020-09-20 18:30] VITALS: BP 120/63
--- NOTE | 2020-09-20 18:40 | NUR ---
Problems reprioritized. Patient report given, questions answered & plan of care reviewed with ALONZO Regalado.
[2020-09-20] MEDS: insulin glargine (Lantus) pen - multi-dose SQ SCH (21:00)
[2020-09-21] MEDS: normal saline 1000ml 1,000 ML IV SCH ×3 (04:35→19:25)
--- NOTE | 2020-09-21 06:30 | NUR ---
Problems reprioritized. Patient report given, questions answered & plan of care reviewed with MONSERRAT. Addendum: 09/21/20 at 0642 by Brett Knott RN Amended: Links added.
[2020-09-21 07:06] LABS: BASOPHILS % (AUTO) 0.4 % (0-1); EOSINOPHILS # (AUTO) 0.2 X10'3 (0-0.9); EOSINOPHILS % (AUTO) 3.4 % (0-6); HEMATOCRIT 40.5 % (42.0-52.0); HEMOGLOBIN 13.5 g/dl (14.0-17.9); LYMPHOCYTES # (AUTO) 1.3 X10'3 (1.1-4.8); LYMPHOCYTES % (AUTO) 19.1 % (21-51); MEAN CORPUSCULAR HEMOGLOBIN 31.1 PG (27.0-31.0); MEAN CORPUSCULAR HGB CONC 33.3 g/dL (33.0-36.5); MEAN CORPUSCULAR VOLUME 93.4 FL (78-98); MEAN PLATELET VOLUME 8.8 FL (7.4-10.4); MONOCYTES # (AUTO) 0.5 X10'3 (0-0.9); MONOCYTES % (AUTO) 7.2 % (2-12); NEUTROPHILS # (AUTO) 4.9 X10'3 (1.8-7.7); NEUTROPHILS % (AUTO) 69.9 % (42-75); PLATELET COUNT 170 X10'3 (140-440); RED BLOOD COUNT 4.34 X10'6 (4.70-6.10); RED CELL DISTRIBUTION WIDTH 13.6 % (11.5-14.5)
[2020-09-21 07:44] LABS: ALANINE AMINOTRANSFERASE 31 U/L (12-78); ALBUMIN 3.5 G/DL (3.4-5.0); ALKALINE PHOSPHATASE 81 IU/L (46-116); ANION GAP 11 (8-16); ASPARTATE AMINO TRANSFERASE 17 U/L (10-37); BLOOD UREA NITROGEN 12 MG/DL (7-18); BUN/CREATININE RATIO 9.7 (5.4-32.0); CALCIUM 8.3 MG/DL (8.5-10.1); CHLORIDE 109 MMOL/L (99-107); CREATININE 1.24 MG/DL (0.60-1.10); GLUCOSE 155 MG/DL (70-104); POTASSIUM 4.7 MMOL/L (3.5-5.1); SODIUM 142 MMOL/L (135-145); TOTAL CARBON DIOXIDE 22.4 MMOL/L (24-32); eGFR 60 ML/MIN
[2020-09-21] MEDS: aspirin 81mg tablet.DR PO SCH (08:05)
[2020-09-21] MEDS: gabapentin 400mg capsule PO SCH ×2 (08:05→17:10)
[2020-09-21] MEDS: losartan 50mg tablet PO SCH (08:06)
[2020-09-21] MEDS: atorvastatin 20mg tablet PO SCH (08:07)
[2020-09-21] MEDS: pantoprazole 40 MG vial IV SCH ×2 (08:07→19:14)
[2020-09-21] MEDS: enoxaparin 40mg/0.4ml syringe SUBCUT SCH (08:07)
[2020-09-21] MEDS: morphine 2 MG/ML inj. syringe IV PRN ×2 (08:09→19:14)
[2020-09-21 09:16] VITALS: BP 129/88
[2020-09-21 11:18] VITALS: BP 120/77
[2020-09-21 18:00] VITALS: BP 126/84
--- NOTE | 2020-09-21 18:45 | NUR ---
Problems reprioritized. Patient report given, questions answered & plan of care reviewed with Mary ROSADO.
--- NOTE | 2020-09-21 18:55 | NUR ---
Patient in room TRAN 351. I have received report from Meek ROSADO and had the opportunity to ask questions and assume patient care. Pt has finished dinner and is sitting up playing yatzee with his . No signs of distress, will continue to monitor.
[2020-09-21] MEDS: insulin glargine (Lantus) pen - multi-dose SQ SCH (21:00)
--- NOTE | 2020-09-21 21:17 | NUR ---
Pt stated after testing his blood that he had just eaten and had a glass of sweet tea. No coverage to be given at this time.
[2020-09-21 23:45] VITALS: BP 108/67
[2020-09-22] MEDS: normal saline 1000ml 1,000 ML IV SCH ×2 (00:03→05:02)
[2020-09-22] MEDS: gabapentin 400mg capsule PO SCH ×2 (00:03→07:16)
[2020-09-22] MEDS: morphine 2 MG/ML inj. syringe IV PRN (05:02)
[2020-09-22 06:11] LABS: BASOPHILS % (AUTO) 0.5 % (0-1); EOSINOPHILS # (AUTO) 0.2 X10'3 (0-0.9); EOSINOPHILS % (AUTO) 3.9 % (0-6); HEMATOCRIT 40.4 % (42.0-52.0); HEMOGLOBIN 13.8 g/dl (14.0-17.9); LYMPHOCYTES # (AUTO) 1.5 X10'3 (1.1-4.8); LYMPHOCYTES % (AUTO) 24.1 % (21-51); MEAN CORPUSCULAR HEMOGLOBIN 31.1 PG (27.0-31.0); MEAN CORPUSCULAR VOLUME 91.5 FL (78-98); MEAN PLATELET VOLUME 8.3 FL (7.4-10.4); MONOCYTES # (AUTO) 0.5 X10'3 (0-0.9); NEUTROPHILS % (AUTO) 63.5 % (42-75); PLATELET COUNT 172 X10'3 (140-440); RED BLOOD COUNT 4.42 X10'6 (4.70-6.10); RED CELL DISTRIBUTION WIDTH 13.8 % (11.5-14.5); WHITE BLOOD COUNT 6.3 X10'3 (4.5-11.0)
--- NOTE | 2020-09-22 06:13 | NUR ---
Problems reprioritized. Patient report given, questions answered & plan of care reviewed with Chel ROSADO.
[2020-09-22 06:40] LABS: ALANINE AMINOTRANSFERASE 36 U/L (12-78); ALBUMIN 3.5 G/DL (3.4-5.0); ALKALINE PHOSPHATASE 94 IU/L (46-116); ANION GAP 11 (8-16); ASPARTATE AMINO TRANSFERASE 24 U/L (10-37); BILIRUBIN,TOTAL 0.7 MG/DL (0.1-1.0); BLOOD UREA NITROGEN 14 MG/DL (7-18); CALCIUM 8.5 MG/DL (8.5-10.1); CHLORIDE 109 MMOL/L (99-107); CREATININE 1.27 MG/DL (0.60-1.10); GLUCOSE 155 MG/DL (70-104); POTASSIUM 4.7 MMOL/L (3.5-5.1); SODIUM 141 MMOL/L (135-145); TOTAL CARBON DIOXIDE 21.1 MMOL/L (24-32); TOTAL PROTEIN 7.1 G/DL (6.4-8.2); eGFR 58 ML/MIN
--- NOTE | 2020-09-22 06:41 | NUR ---
Patient in room TRAN 351. I have received report from Mary ROSADO and had the opportunity to ask questions and assume patient care.
[2020-09-22] MEDS: aspirin 81mg tablet.DR PO SCH (07:17)
[2020-09-22] MEDS: losartan 50mg tablet PO SCH (07:17)
[2020-09-22] MEDS: pantoprazole 40 MG vial IV SCH (07:17)
[2020-09-22] MEDS: atorvastatin 20mg tablet PO SCH (07:17)
[2020-09-22] MEDS: enoxaparin 40mg/0.4ml syringe SUBCUT SCH (07:18)
[2020-09-22 08:00] VITALS: BP 138/95
[2020-09-22 08:52] LABS: LIPASE 341 U/L (73-393)
[2020-09-22] MEDS ORDERED: TRAM50TA2 PO (10:54)
[2020-09-22] MEDS ORDERED: PANT-47 PO (10:54)
--- NOTE | 2020-09-22 12:05 | NUR ---
Patient was educated on worsening symptoms, Medications, follow-up with PCP in one week. New prescriptions were sent to [facility] on [address]. Two IV's were removed and canula's were intact. Note given to patient excusing him from work until MondaySeptember 27.
== END 2020-09-22 11:50 | disposition home or self-care (01) | DRG 439 ==
LOC: ER 00:57 → ED HOLD 07:25 → SUR 3N 09:07
PROVIDERS: ADMIT Family Medicine; ATTEND Family Medicine
PROC: BW211ZZ Computerized Tomography (CT Scan) of Abdomen and Pelvis using Low Osmolar Contrast (ICD-10-PCS; principal; 2020-09-19)
DX: K85.90 Acute pancreatitis without necrosis or infection, unspecified (principal); N17.9 Acute kidney failure, unspecified; E11.22 Type 2 diabetes mellitus with diabetic chronic kidney disease; E78.5 Hyperlipidemia, unspecified; K21.9 Gastro-esophageal reflux disease without esophagitis; M25.512 Pain in left shoulder; K59.00 Constipation, unspecified; G89.29 Other chronic pain; I12.9 Hypertensive chronic kidney disease with stage 1 through stage 4 chronic kidney disease, or unspecified chronic kidney disease; K29.80 Duodenitis without bleeding; N18.9 Chronic kidney disease, unspecified; T39.395A Adverse effect of other nonsteroidal anti-inflammatory drugs [NSAID], initial encounter; Y92.89 Other specified places as the place of occurrence of the external cause; Z87.442 Personal history of urinary calculi
CPT/HCPCS: 36415; 74022; 74178; 80053; 80061; 81003; 82948; 83036; 83690; 85025; 87081; 96374; 96375; 99285; C9113; G0378; J1650; J1815; J1885; J2270; J2405; J7030; Q9967